=== PATIENT | male | born 1995 | race Caucasian/White ===

== ENCOUNTER 2019-01-13 16:23 | Emergency (ER) | payer SELFPAY ==
[~2019-01-13] VITALS: Ht 188 cm; Wt 59.0 kg
[2019-01-13 19:31] VITALS: BP 145/73
== END 2019-01-13 19:35 | disposition home or self-care (01) ==
LOC: ER 16:23
DX: H10.89 Other conjunctivitis (principal)
CPT/HCPCS: 99282